=== PATIENT | female | born 1930 | race Caucasian/White ===

== ENCOUNTER 2017-04-15 11:47 | Observation (INO) | payer OTHER ==
[~2017-04-15] VITALS: Ht 144.8 cm; Wt 43.6 kg
[~2017-04-15 11:47] MED LIST: AMLO2.5T PO; ATOR10TA15 PO; CALC500T55 PO; DENO60P SQ; TRAM50TA PO; VITA2000 PO; VITA250T3 PO
[2017-04-15 11:54] VITALS: BP 145/64; PULSE 94; RESP 16; TEMP 97.7; O2SAT 97
[2017-04-15] MEDS ORDERED: SODIUM CHLOR 0.9% 1000 ML INJ 1,000 ML IV SCH (12:33)
--- NOTE | 2017-04-15 12:40 | PD ---
HPI Chief Complaint: GI Complaint Time Seen by Provider: 12:00 Travel History International Travel<30 days: No Contact w/Intl Traveler<30days: No Traveled to known affect area: No History of Present Illness HPI 87-year-old female here with her son for evaluation of nausea and diarrhea for the last 9 days. Patient describes loose/slightly bowel movements for the last 9 days. According to the patient's son she spends most of the day in her bed and has had only a banana to eat daily. Patient has some mild lower abdominal discomfort. She had a fever on the first day of her symptoms, however this has resolved. She has felt nauseous but no vomiting. No urinary symptoms. No recent travel. No recent antibiotic use. PFSH Past Medical History Hx Anticoagulant Therapy: Yes (BABY ASA DAILY) Arthritis: Yes Atrial Fibrillation: Yes Heart Rhythm Problems: Yes Cancer: Yes (MALIGNANT TUMOR OF STOMACH) Cardiac Catheterization: Yes Cardiovascular Problems: Yes (DC'S X 2 , ANGIOPLASTY, HTN, CHOL) High Cholesterol: Yes Congestive Heart Failure: Yes Diabetes: No Diminished Hearing: Yes Endocrine: No Gastrointestinal Disorders: Yes (MALIGNANT TUMOR OF STOMACH (SURGERY)) Genitourinary: No Hypertension: Yes Immune Disorder: No Musculoskeletal: Yes Neurologic: No Psychiatric: No Reproductive: No Respiratory: Yes Myocardial Infarction: Yes Tetanus Vaccination: Unknown Influenza Vaccination: Yes ?: Not Menopausal: Yes Past Surgical History Abdominal Surgery: Yes (MALIGNANT TUMOR OF STOMACH) Cardiac Surgery: Yes (ANGIOPLASTY 1995) Coronary Stent: Yes (ANGIOPLASTY) Eye Surgery: Yes (CATARACTS [id number]) Hysterectomy: Yes Other Surgery: Yes (TUMOR OFF OF STOMACH) Family History Family Myocardial Infarction: Yes Social History Alcohol Use: No Tobacco Use: No Substance Use: No Allergies-Medications (Allergen,Severity, Reaction): Coded Allergies: No Known Allergies (Unverified Adverse Reaction, Unknown, 04/15/17) Reported Meds & Prescriptions Reported Meds & Active Scripts Active Reported Prolia Inj (Denosumab) 60 Mg/Ml Inj 60 Mg SQ Q180D Vitamin D3 (Cholecalciferol) 2,000 Unit Cap 2,000 Units PO DAILY Tramadol (Tramadol HCl) 50 Mg Tab 50 Mg PO Q8H PRN Atorvastatin (Atorvastatin Calcium) 10 Mg Tab 10 Mg PO HS Amlodipine (Amlodipine Besylate) 2.5 Mg Tab 2.5 Mg PO DAILY Review of Systems Except as stated in HPI: all other systems reviewed are Neg Physical Exam Narrative GENERAL: Well-developed, thin, comfortable, no apparent distress. SKIN: Focused skin assessment warm/dry. HEAD: Atraumatic. Normocephalic. EYES: Pupils equal and round. No scleral icterus. No injection or drainage. ENT: No nasal bleeding or discharge. Mucous membranes pink and moist. NECK: Trachea midline. No JVD. CARDIOVASCULAR: Regular rate and rhythm. No murmur appreciated. RESPIRATORY: No accessory muscle use. Clear to auscultation. Breath sounds equal bilaterally. GASTROINTESTINAL: Abdomen soft, nondistended. Mild lower abdominal/suprapubic tenderness without peritoneal signs. Rest of abdomen is soft and nontender. Normal bowel sounds. MUSCULOSKELETAL: No obvious deformities. No clubbing. No cyanosis. No edema. NEUROLOGICAL: Awake and alert. No obvious cranial nerve deficits. Motor grossly within normal limits. Normal speech. PSYCHIATRIC: Appropriate mood and affect; insight and judgment normal. Data Data Last Documented VS Vital Signs Date Time Temp Pulse Resp B/P (MAP) Pulse Ox O2 Delivery O2 Flow Rate FiO2 04/15/17 12:53 98 Room Air 04/15/17 11:54 97.7 94 16 145/64 (91) Orders Orders Complete Blood Count With Diff (04/15/17 12:33) Comprehensive Metabolic Panel (04/15/17 12:33) Lipase (04/15/17 12:33) Prothrombin Time / Inr (Pt) (04/15/17 12:33) Act Partial Throm Time (Ptt) (04/15/17 12:33) Urinalysis - C+S If Indicated (04/15/17 12:33) Ct Abd/Pel W Iv Contrast(Rout) (04/15/17 12:33) Iv Access Insert/Monitor (04/15/17 12:33) Ecg Monitoring (04/15/17 12:33) Oximetry (04/15/17 12:33) Sodium Chlor 0.9% 1000 Ml Inj (Ns 1000 M (04/15/17 12:33) Sodium Chloride 0.9% Flush (Ns Flush) (04/15/17 12:45) C Diff Toxin Pcr (04/15/17 12:33) Stool Ova And Parasite Screen (04/15/17 12:33) Influenzae A/B Antigen (04/15/17 12:33) Creatine Kinase (Cpk) (04/15/17 12:41) Urine Culture (04/15/17 12:10) Iohexol 350 Inj (Omnipaque 350 Inj) (04/15/17 13:48) Ciprofloxacin 400 Mg Premix (Cipro 400 M (04/15/17 14:00) Potassium Chlor 20 Meq Premix (Kcl 20 Me (04/15/17 14:00) Labs Laboratory Tests Test 04/15/17 12:10 04/15/17 12:15 Urine Collection Type CLEAN CATCH Urine Color YELLOW Urine Turbidity SLIGHT Urine pH 6.0 Urine Specific [place] 1.016 Urine Protein 100 mg/dL Urine Glucose (UA) NEG mg/dL Urine Ketones 15 mg/dL Urine Occult Blood SMALL Urine Nitrite NEG Urine Bilirubin NEG Urine Leukocyte Esterase SMALL Urine RBC 0-3 /hpf Urine WBC 15-19 /hpf Urine Squamous Epithelial Cells > 8 /hpf Urine Transitional Epithelial Cells 0-5 /hpf Urine Amorphous Sediment MOD Urine Bacteria MOD /hpf Urine Hyaline Casts 0-2 /lpf Microscopic Urinalysis Comment CULTURE INDICATED Urine Collection Time 1210 White Blood Count 7.0 TH/MM3 Red Blood Count 4.59 MIL/MM3 Hemoglobin 13.2 GM/DL Hematocrit 38.9 % Mean Corpuscular Volume 84.7 FL Mean Corpuscular Hemoglobin 28.7 PG Mean Corpuscular Hemoglobin Concent 33.9 % Red Cell Distribution Width 13.7 % Platelet Count 303 TH/MM3 Mean Platelet Volume 9.2 FL Neutrophils (%) (Auto) 67.3 % Lymphocytes (%) (Auto) 19.1 % Monocytes (%) (Auto) 11.7 % Eosinophils (%) (Auto) 0.6 % Basophils (%) (Auto) 1.3 % Neutrophils # (Auto) 4.8 TH/MM3 Lymphocytes # (Auto) 1.3 TH/MM3 Monocytes # (Auto) 0.8 TH/MM3 Eosinophils # (Auto) 0.0 TH/MM3 Basophils # (Auto) 0.1 TH/MM3 CBC Comment DIFF FINAL Differential Comment Prothrombin Time 11.5 SEC Prothromb Time International Ratio 1.1 RATIO Activated Partial Thromboplast Time 28.2 SEC Blood Urea Nitrogen 11 MG/DL Creatinine 0.73 MG/DL Random Glucose 101 MG/DL Total Protein 7.2 GM/DL Albumin 3.1 GM/DL Calcium Level 9.0 MG/DL Alkaline Phosphatase 85 U/L Aspartate Amino Transf (AST/SGOT) 18 U/L Alanine Aminotransferase (ALT/SGPT) 15 U/L Total Bilirubin 0.6 MG/DL Sodium Level 139 MEQ/L Potassium Level 2.7 MEQ/L Chloride Level 105 MEQ/L Carbon Dioxide Level 25.7 MEQ/L Anion Gap 8 MEQ/L Estimat Glomerular Filtration Rate 75 ML/MIN Total Creatine Kinase 82 U/L Lipase 666 U/L [facility] Medical Decision Making Medical Screen Exam Complete: Yes Emergency Medical Condition: Yes Differential Diagnosis Diarrhea, dehydration, metabolic abnormality, colitis, diverticulitis Narrative Course Initial vital signs show heart rate 94, blood pressure 145/64, pulse ox 98% on room air, oral temp of 97.7F. CBC is unremarkable. CMP is remarkable for potassium 2.7, otherwise unremarkable. Lipase is 666. UA is suggestive of UTI. CT abdomen pelvis: CONCLUSION: Dense atherosclerotic disease. Solid organs are unremarkable. Colon is decompressed. Patient was provided parenteral potassium as well as a dose of IV Cipro for her UA findings. She will be admitted for further treatment and evaluation of diarrhea, severe hypokalemia, generalized weakness, failure to thrive. Case discussed with hospitalist Dr. Young who will admit the patient to her service. Diagnosis Primary Impression: Hypokalemia Additional Impressions: Failure to thrive in adult UTI (urinary tract infection) Qualified Codes: N39.0 - Urinary tract infection, site not specified; R31.9 - Hematuria, unspecified Diarrhea Qualified Codes: R19.7 - Diarrhea, unspecified Admitting Information Admitting Physician Requests: Raheel Su MD Apr 15, 2017 12:40
[2017-04-15] MEDS ORDERED: SODIUM CHLORIDE 0.9% FLUSH 10 ML FLUSH IV FLUSH PRN ×2 (12:45→14:30)
[2017-04-15 12:48] LABS: AUTOMATED NEUTROPHIL # 4.8 TH/MM3 (1.8-7.7); BASOPHIL # 0.1 TH/MM3 (0-0.2); BASOPHIL % 1.3 % (0.0-2.0); EOSINOPHIL % 0.6 % (0.0-4.0); HEMATOCRIT 38.9 % (35.0-46.0); HEMOGLOBIN 13.2 GM/DL (11.6-15.3); LYMPH % 19.1 % (9.0-44.0); LYMPHOCYTE # 1.3 TH/MM3 (1.0-4.8); MEAN CELL VOLUME 84.7 FL (80.0-100.0); MEAN CORPUSCULAR HEMOGLOBIN 28.7 PG (27.0-34.0); MEAN CORPUSCULAR HGB CONC 33.9 % (32.0-36.0); MEAN PLATELET VOLUME 9.2 FL (7.0-11.0); MONO % 11.7 % (0.0-8.0); MONOCYTE # 0.8 TH/MM3 (0-0.9); NEUT % 67.3 % (16.0-70.0); PLATELET COUNT 303 TH/MM3 (150-450); RED BLOOD COUNT 4.59 MIL/MM3 (4.00-5.30); RED CELL DISTRIBUTION WIDTH 13.7 % (11.6-17.2)
[2017-04-15 12:50] LABS: BILIRUBIN, URINE NEG (NEG); BLOOD, URINE SMALL (NEG); GLUCOSE,URINE NEG (NEG); KETONE, URINE 15 mg/dL (NEG); NITRITE,URINE NEG (NEG); URINE LEUKOCYTE ESTERASE SMALL (NEG)
[2017-04-15 12:53] VITALS: O2SAT 98
[2017-04-15 12:58] LABS: URINE COLOR YELLOW (YELLW/STRAW)
[2017-04-15 12:59] LABS: WBC, URINE 15-19 /hpf (0-5)
[2017-04-15 13:00] LABS: AMORPHOUS SEDIMENT, URINE MOD; BACTERIA, URINE MOD /hpf; HYALINE CAST, URINE 0-2 /lpf (RARE); RBC, URINE 0-3 /hpf (0-3); SQUAMOUS EPITHELIAL CELL URINE > 8 /hpf (0-5); TRANSITIONAL EPI CELLS, URINE 0-5 /hpf
[2017-04-15 13:13] LABS: INTERNATIONAL NORMALIZED RATIO 1.1 RATIO; PROTHROMBIN TIME - PATIENT 11.5 SEC (9.8-11.6)
[2017-04-15 13:15] LABS: ALBUMIN 3.1 GM/DL (3.4-5.0); ALKALINE PHOSPHATASE 85 U/L (45-117); ALT (GPT) 15 U/L (10-53); AST (GOT) 18 U/L (15-37); BICARBONATE 25.7 MEQ/L (21.0-32.0); BLOOD UREA NITROGEN 11 MG/DL (7-18); CHLORIDE 105 MEQ/L (98-107); CREATININE 0.73 MG/DL (0.50-1.00); GLOMERULAR FILTRATION RATE 75 ML/MIN (>89); GLUCOSE,RANDOM 101 MG/DL (74-106); SODIUM (NA) 139 MEQ/L (136-145); TOTAL BILIRUBIN ADULT 0.6 MG/DL (0.2-1.0); TOTAL PROTEIN 7.2 GM/DL (6.4-8.2)
[2017-04-15] MEDS ORDERED: IOHEXOL 350 MG/ML 10 ML VIAL (for RAD DIAG) IVCONTRAST ONE (13:48)
[2017-04-15] MEDS ORDERED: CIPROFLOXACIN 400 MG PREMIX 200 ML IV ONE (14:00)
--- NOTE | 2017-04-15 14:01 | RADRPT ---
EXAM DATE/TIME: 04/15/2017 13:44 [place] COMPARISON: No previous studies available for comparison. INDICATIONS : Nausea, vomiting and diarrhea. IV CONTRAST: 70 cc Omnipaque 350 (iohexol) IV ORAL CONTRAST: No oral contrast ingested. RADIATION DOSE: 4.45 CTDIvol (mGy) MEDICAL HISTORY : Cardiovascular disease. Hypercholesterolemia. Hypertension.Stomach cancer. SURGICAL HISTORY : Coronary artery stent. Hysterectomy.Angioplasty.Stomach tumor removed. ENCOUNTER: Initial ACUITY: 2 weeks PAIN SCALE: 4/10 LOCATION: pelvis abdomen TECHNIQUE: Volumetric scanning of the abdomen and pelvis was performed. Using automated exposure control and ad justment of the mA and/or kV according to patient size, radiation dose was kept as low as reasonably achievable to obtain optimal diagnostic quality images. DICOM format image data is available electro nically for review and comparison. FINDINGS: LOWER LUNGS: The visualized lower lungs are clear. LIVER: Homogeneous density without lesion. There is no dilation of the biliary tree. No calcified gallston es. SPLEEN: Normal size without lesion. PANCREAS: Within normal limits. KIDNEYS: Normal in size and shape. There is no mass, stone or hydronephrosis. ADRENAL GLANDS: Within normal limits. VASCULAR: There is no aortic aneurysm. Dense atherosclerotic disease BOWEL/MESENTERY: The stomach, small bowel, and colon demonstrate no acute abnormality. There is no free intraperitone al air or fluid. ABDOMINAL WALL: Within normal limits. RETROPERITONEUM: There is no lymphadenopathy. BLADDER: No wall thickening or mass. REPRODUCTIVE: Within normal limits. INGUINAL: There is no lymphadenopathy or hernia. MUSCULOSKELETAL: Within normal limits for patient age. CONCLUSION: Dense atherosclerotic disease. Solid organs are unremarkable. Colon is decompressed. Jacques Bravo MD on April 15, 2017 at 13:58 Board Certified Radiologist. This report was verified electronically.
[2017-04-15] MEDS: POTASSIUM CHLOR 20 MEQ PREMIX 100 ML IV SCH ×2 (14:13→16:13)
[2017-04-15] MEDS ORDERED: NS + KCL 20 MEQ INJ 1,000 ML IV SCH (14:20)
[2017-04-15] MEDS ORDERED: ONDANSETRON HCL 4 MG/2 ML VIAL IV PUSH PRN (15:00)
--- NOTE | 2017-04-15 15:15 | HHI.HP ---
[facility] Riana Blackburn D.O. Admission Diagnosis hypokalemia, failure to thrive, UTI, diarrhea Diagnoses: (1) Gastroenteritis Diagnosis: Principal (2) Diarrhea Diagnosis: Principal (3) Hypokalemia Diagnosis: Principal (4) UTI (urinary tract infection) Diagnosis: Principal (5) Generalized weakness Diagnosis: Principal (6) Elevated lipase Diagnosis: Principal Chief Complaint: Generalized weakness, diarrhea Travel History International Travel<30 Days: No Contact w/Intl Traveler <30 Da: No Traveled to Known Affected Are: No History of Present Illness 87-year-old female with known history of hypertension, hyperlipidemia , gastric cancer, myocardial infarction who presented to hospital because of nausea, diarrhea, profound weakness. Patient states that her symptoms started approximately 9 days ago. She started with upper abdominal discomfort and then started having explosive diarrhea. Patient states that it was pretty severe for the first couple days.And she has been having diarrhea episodes ever since then up to 5 bowel movements daily. She has not had an appetite and has not really eating much food. She has been drinking Gatorade and keep in fluids and/ or. She does live a home by herself, however her son does come and check on her on a regular basis. Because she has not gotten better, has not gotten out of bed much and has not improved he brought her to the hospital for evaluation. Patient was found to have multiple problems with hypokalemia, elevated lipase level, urinary tract infection, continue diarrhea. Patient will be observed in the hospital for further management. Patient denies any recent antibiotics, sick contacts Review of Systems Gastrointestinal: COMPLAINS OF: Abdominal pain, Diarrhea, Nausea Except as stated in HPI: all other systems reviewed are Neg Past Family Social History Past Medical History Hypertension Hyperlipidemia Coronary artery disease History myocardial infarction History gastric cancer Past Surgical History Cardiac catheterization with angioplasty Cataract surgery Hysterectomy Gastric cancer resection Reported Medications Reported Meds & Active Scripts Active Reported Prolia Inj (Denosumab) 60 Mg/Ml Inj 60 Mg SQ Q180D Vitamin D3 (Cholecalciferol) 2,000 Unit Cap 2,000 Units PO DAILY Tramadol (Tramadol HCl) 50 Mg Tab 50 Mg PO Q8H PRN Atorvastatin (Atorvastatin Calcium) 10 Mg Tab 10 Mg PO HS Amlodipine (Amlodipine Besylate) 2.5 Mg Tab 2.5 Mg PO DAILY Allergies: Coded Allergies: No Known Allergies (Unverified Allergy, Unknown, 04/15/17) Family History Reviewed and significant for heart disease, cancer, diabetes Social History Patient eyes any tobacco, alcohol or illicit drugs Physical Exam Vital Signs Vital Signs Date Time Temp Pulse Resp B/P (MAP) Pulse Ox O2 Delivery O2 Flow Rate FiO2 04/15/17 12:53 98 Room Air 04/15/17 11:54 97.7 94 16 145/64 (91) 97 Physical Exam GENERAL: Well-developed, frail and cachectic, in no acute distress. alert and orientated HEENT: Head is normocephalic without any lesions or masses noted. Facial features are symmetric. Eyes: Pupils equal round reactive to light. Extraocular muscles are intact. Conjunctivae were clear. Oropharyngeal: Pharynx without any erythema edema. Tongue is midline without deviation. Buccal mucosa is moist without any masses or lesions NECK: Supple without any masses. Trachea midline no deviation. No JVD, no bruits are appreciated CARDIAC: Regular rhythm, regular rate. S1/S2 are heard. 2/6 ejection murmur, no gallops or rubs. LUNGS: Clear to auscultation bilaterally. No wheeze, rhonchi or rales. No use of accessory muscles on inspiration or expiration. ABDOMEN: Soft, nontender. Nondistended. Bowel sounds heard in all 4 quadrants. No organomegaly or masses. Negative rebound, negative guarding EXTREMITIES: No edema, pulses are equal bilaterally. No cyanosis or clubbing NEUROLOGY: Mood and affect appear appropriate. Cranial nerves II through XII grossly intact. Muscle strength 5/5 in upper and lower extremities bilaterally. Deep tendon reflexes are 2+ in upper and lower extremities bilaterally. Laboratory Laboratory Tests Test 04/15/17 12:10 04/15/17 12:15 Urine Collection Type CLEAN CATCH Urine Color YELLOW Urine Turbidity SLIGHT Urine pH 6.0 Urine Specific [place] 1.016 Urine Protein 100 Urine Glucose (UA) NEG Urine Ketones 15 Urine Occult Blood SMALL Urine Nitrite NEG Urine Bilirubin NEG Urine Leukocyte Esterase SMALL Urine RBC 0-3 Urine WBC 15-19 Urine Squamous Epithelial Cells > 8 Urine Transitional Epithelial Cells 0-5 Urine Amorphous Sediment MOD Urine Bacteria MOD Urine Hyaline Casts 0-2 Microscopic Urinalysis Comment CULTURE INDICATED Urine Collection Time 1210 White Blood Count 7.0 Red Blood Count 4.59 Hemoglobin 13.2 Hematocrit 38.9 Mean Corpuscular Volume 84.7 Mean Corpuscular Hemoglobin 28.7 Mean Corpuscular Hemoglobin Concent 33.9 Red Cell Distribution Width 13.7 Platelet Count 303 Mean Platelet Volume 9.2 Neutrophils (%) (Auto) 67.3 Lymphocytes (%) (Auto) 19.1 Monocytes (%) (Auto) 11.7 Eosinophils (%) (Auto) 0.6 Basophils (%) (Auto) 1.3 Neutrophils # (Auto) 4.8 Lymphocytes # (Auto) 1.3 Monocytes # (Auto) 0.8 Eosinophils # (Auto) 0.0 Basophils # (Auto) 0.1 CBC Comment DIFF FINAL Differential Comment Prothrombin Time 11.5 Prothromb Time International Ratio 1.1 Activated Partial Thromboplast Time 28.2 Blood Urea Nitrogen 11 Creatinine 0.73 Random Glucose 101 Total Protein 7.2 Albumin 3.1 Calcium Level 9.0 Alkaline Phosphatase 85 Aspartate Amino Transf (AST/SGOT) 18 Alanine Aminotransferase (ALT/SGPT) 15 Total Bilirubin 0.6 Sodium Level 139 Potassium Level 2.7 Chloride Level 105 Carbon Dioxide Level 25.7 Anion Gap 8 Estimat Glomerular Filtration Rate 75 Total Creatine Kinase 82 Lipase 666 Date/Time Source Procedure Growth Status 04/15/17 12:35 Nasal Washing Influenza Types A,B Antigen (JAIMEE) - Final NEGATIVE FOR FLU A AND B ANTIGEN.... Complete 04/15/17 12:10 Urine Clean Catch Urine Culture Pending Received Result Diagram: 04/15/17 1215 04/15/17 1215 Imaging Last Impressions Abdomen/Pelvis CT 04/15/17 1233 Signed Impressions: Service Date/Time: Saturday, April 15, 2017 13:44 - CONCLUSION: Dense atherosclerotic disease. Solid organs are unremarkable. Colon is decompressed. MD Jimmie Mcmahon VTE Risk Assessment Jimmie VTE Risk Assessment: Mod/High Risk (score >= 2) Caprini Risk Assessment Model Point Value = 1 Point Value = 2 Point Value = 3 Point Value = 5 Age 41-60 Minor surgery BMI > 25 kg/m2 Swollen legs Varicose veins or History of unexplained or recurrent spontaneous Oral contraceptives or hormone replacement Sepsis (< 1 month) Serious lung disease, including pneumonia (< 1 month) Abnormal pulmonary function Acute myocardial infarction Congestive heart failure (< 1 month) History of inflammatory bowel disease Medical patient at bed rest Age 61-74 Arthroscopic surgery Major open surgery (> 45 min) Laparoscopic surgery (> 45 min) Malignancy Confined to bed (> 72 hours) Immobilizing plaster cast Central venous access Age >= 75 History of VTE Family history of VTE Factor V Leiden Prothrombin [id number] Lupus anticoagulant Anticardiolipin antibodies Elevated serum homocysteine Heparin-induced thrombocytopenia Other congenital or acquired thrombophilia Stroke (< 1 month) Elective arthroplasty Hip, pelvis, or leg fracture Acute spinal cord injury (< 1 month) Prophylaxis Regimen Total Risk Factor Score Risk Level Prophylaxis Regimen 0-1 Low Early ambulation 2 Moderate Order ONE of the following: *Sequential Compression Device (SCD) *Heparin 5000 units SQ BID 3-4 Higher Order ONE of the following medications: *Heparin 5000 units SQ TID *Enoxaparin/Lovenox 40 mg SQ daily (WT < 150 kg, CrCl > 30 mL/min) *Enoxaparin/Lovenox 30 mg SQ daily (WT < 150 kg, CrCl > 10-29 mL/min) *Enoxaparin/Lovenox 30 mg SQ BID (WT < 150 kg, CrCl > 30 mL/min) AND/OR *Sequential Compression Device (SCD) 5 or more Highest Order ONE of the following medications: *Heparin 5000 units SQ TID (Preferred with Epidurals) *Enoxaparin/Lovenox 40 mg SQ daily (WT < 150 kg, CrCl > 30 mL/min) *Enoxaparin/Lovenox 30 mg SQ daily (WT < 150 kg, CrCl > 10-29 mL/min) *Enoxaparin/Lovenox 30 mg SQ BID (WT < 150 kg, CrCl > 30 mL/min) AND *Sequential Compression Device (SCD) Assessment and Plan Assessment and Plan Gastroenteritis with diarrhea illness Continue IV fluids We'll check stool for C. difficile, WBC, rotavirus, enteric pathogen CT scan does not indicate any colitis Clear liquid diet advance diet tomorrow if patient improves We'll hold antibiotics for infectious diarrhea until further studies have been performed Hypokalemia, secondary to diarrhea illness Replace and continue monitor Elevated lipase, could be reactive CT scan does not indicate any pancreatitis findings trend lipase level Urinary tract infection Patient was given Cipro in the emergency department start Rocephin 1 g daily Generalized weakness Consult physical therapy for evaluation Depending on their mentation patient may need home health care versus rehabilitation Hypertension, hyperlipidemia, coronary artery disease Continue home medications DVT prevention Sequential compression devices Problem Qualifiers (1) Diarrhea: Qualified Codes: R19.7 - Diarrhea, unspecified (2) UTI (urinary tract infection): Qualified Codes: N39.0 - Urinary tract infection, site not specified; R31.9 - Hematuria, unspecified Mk Merritt Apr 15, 2017 15:15
[2017-04-15] MEDS ORDERED: PILL SPLITTER OTHER PRN (15:30)
[2017-04-15 15:36] VITALS: BP 132/43; PULSE 80; RESP 16; O2SAT 98
[2017-04-15 16:00] VITALS: BP 164/71; PULSE 79; RESP 16; TEMP 97.4; O2SAT 98
[2017-04-15] MEDS: cefTRIAXone INJ 1,000 MG in SODIUM CHLORIDE 0.9% INJ 100 ML IV SCH (18:28)
[2017-04-15 20:37] VITALS: BP 129/82; PULSE 80; RESP 12; TEMP 99.2; O2SAT 97
[2017-04-15] MEDS: ATORVASTATIN 10 MG TAB PO SCH (21:27)
[2017-04-15] MEDS: SODIUM CHLORIDE 0.9% FLUSH 10 ML FLUSH IV FLUSH SCH (21:27)
[2017-04-15] MEDS: POTASSIUM CHLORIDE INJ 20 MEQ in SODIUM CHLOR 0.9% 1000 ML INJ 1,000 ML IV SCH (23:22)
[2017-04-16 00:36] VITALS: BP 156/84; PULSE 81; RESP 12; TEMP 98.9; O2SAT 95
[2017-04-16 07:26] LABS: AUTOMATED NEUTROPHIL # 3.3 TH/MM3 (1.8-7.7); BASOPHIL % 0.6 % (0.0-2.0); EOSINOPHIL # 0.1 TH/MM3 (0-0.4); EOSINOPHIL % 2.2 % (0.0-4.0); HEMATOCRIT 34.5 % (35.0-46.0); HEMOGLOBIN 11.4 GM/DL (11.6-15.3); LYMPH % 28.4 % (9.0-44.0); LYMPHOCYTE # 1.6 TH/MM3 (1.0-4.8); MEAN CELL VOLUME 86.4 FL (80.0-100.0); MEAN CORPUSCULAR HEMOGLOBIN 28.6 PG (27.0-34.0); MEAN CORPUSCULAR HGB CONC 33.1 % (32.0-36.0); MEAN PLATELET VOLUME 8.3 FL (7.0-11.0); MONO % 11.6 % (0.0-8.0); MONOCYTE # 0.7 TH/MM3 (0-0.9); NEUT % 57.2 % (16.0-70.0); PLATELET COUNT 285 TH/MM3 (150-450); RED BLOOD COUNT 3.99 MIL/MM3 (4.00-5.30); RED CELL DISTRIBUTION WIDTH 13.4 % (11.6-17.2); WHITE BLOOD COUNT 5.7 TH/MM3 (4.0-11.0)
[2017-04-16 07:40] LABS: BICARBONATE 26.6 MEQ/L (21.0-32.0); CALCIUM 7.6 MG/DL (8.5-10.1); CREATININE 0.54 MG/DL (0.50-1.00)
--- NOTE | 2017-04-16 07:52 | HHI.PR ---
Subjective Remarks Patient seen and examined today in follow up for enteritis, diarrhea. Patient has not had any recurrent diarrhea since being here, Her appetite is improving, will advance diet, patient remains afebrile Objective Vitals Vital Signs Date Time Temp Pulse Resp B/P (MAP) Pulse Ox O2 Delivery O2 Flow Rate FiO2 04/16/17 00:36 98.9 81 12 156/84 (108) 95 04/15/17 20:37 99.2 80 12 129/82 (98) 97 04/15/17 16:00 97.4 79 16 164/71 (102) 98 04/15/17 15:48 04/15/17 15:36 80 16 132/43 (72) 98 Room Air 04/15/17 12:53 98 Room Air 04/15/17 11:54 97.7 94 16 145/64 (91) 97 I/O 04/15/17 04/15/17 04/15/17 04/16/17 04/16/17 04/16/17 07:00 15:00 23:00 07:00 15:00 23:00 Intake Total 400 ml Output Total 300 ml Balance 100 ml Intake IV Total 400 ml Output Urine Total 300 ml # Voids 1 3 Result Diagram: 04/16/17 0700 04/16/17 0700 Objective Remarks GENERAL: Well-developed, frail and cachectic, in no acute distress. alert and orientated HEENT: Head is normocephalic without any lesions or masses noted. Facial features are symmetric. Eyes: Extraocular muscles are intact. Conjunctivae were clear. NECK: Supple without any masses. Trachea midline no deviation. No JVD, CARDIAC: Regular rhythm, regular rate. S1/S2 are heard. 2/6 ejection murmur, no gallops or rubs. LUNGS: Clear to auscultation bilaterally. No wheeze, rhonchi or rales. No use of accessory muscles on inspiration or expiration. ABDOMEN: Soft, nontender. Nondistended. Bowel sounds heard in all 4 quadrants. No organomegaly or masses. Negative rebound, negative guarding EXTREMITIES: No edema, pulses are equal bilaterally. No cyanosis or clubbing NEUROLOGY: Mood and affect appear appropriate. Cranial nerves II through XII grossly intact. Moving all extremities, speech is clear Urinary Catheter: No Vascular Central Line Catheter: No A/P Assessment and Plan Gastroenteritis with diarrhea illness Continue IV fluids Awaiting stool for C. difficile, WBC, rotavirus, enteric pathogen CT scan does not indicate any colitis Advance diet as tolerated We'll hold antibiotics for infectious diarrhea until further studies have been performed Hypokalemia, secondary to diarrhea illness Replace and continue monitor Elevated lipase, could be reactive CT scan does not indicate any pancreatitis findings trend lipase level Urinary tract infection Patient was given Cipro in the emergency department Continue Rocephin 1 g daily Generalized weakness Consulted physical therapy for evaluation Depending on their mentation patient may need home health care versus rehabilitation Hypertension, hyperlipidemia, coronary artery disease Continue home medications DVT prevention Sequential compression devices Discharge Planning Discharge planning 24-48 hrs, dependent upon patient response to treatment Mk Merritt Apr 16, 2017 07:52
[2017-04-16 08:00] VITALS: BP 121/63; PULSE 75; RESP 15; TEMP 96.4; O2SAT 98
[2017-04-16] MEDS: SODIUM CHLORIDE 0.9% FLUSH 10 ML FLUSH IV FLUSH SCH ×2 (08:53→21:00)
[2017-04-16] MEDS: amLODIPine BESYLATE 5 MG TAB PO SCH (08:53)
[2017-04-16] MEDS ORDERED: SERT-129 PO (12:40)
[2017-04-16] MEDS ORDERED: MONT10TA4 PO (12:40)
[2017-04-16] MEDS ORDERED: RANI150T PO (12:40)
[2017-04-16] MEDS: POTASSIUM CHLORIDE INJ 20 MEQ in SODIUM CHLOR 0.9% 1000 ML INJ 1,000 ML IV SCH ×2 (14:25→21:18)
[2017-04-16] MEDS: cefTRIAXone INJ 1,000 MG in SODIUM CHLORIDE 0.9% INJ 100 ML IV SCH (15:56)
[2017-04-16 16:00] VITALS: BP 133/65; PULSE 82; RESP 18; TEMP 97.3; O2SAT 99
[2017-04-16 20:00] VITALS: BP 126/62; PULSE 81; RESP 16; TEMP 96.8; O2SAT 99
[2017-04-16] MEDS: ATORVASTATIN 10 MG TAB PO SCH (21:42)
[2017-04-17] VITALS: BP 136/61; PULSE 78; RESP 16; TEMP 97.6; O2SAT 98
[2017-04-17] MEDS: POTASSIUM CHLORIDE INJ 20 MEQ in SODIUM CHLOR 0.9% 1000 ML INJ 1,000 ML IV SCH ×4 (01:24→15:40)
[2017-04-17] MEDS ORDERED: traMADol HCL 50 MG TAB PO ONE (02:00)
[2017-04-17 06:42] LABS: AUTOMATED NEUTROPHIL # 3.4 TH/MM3 (1.8-7.7); BASOPHIL % 0.4 % (0.0-2.0); EOSINOPHIL # 0.1 TH/MM3 (0-0.4); EOSINOPHIL % 2.2 % (0.0-4.0); HEMOGLOBIN 10.6 GM/DL (11.6-15.3); LYMPH % 34.2 % (9.0-44.0); LYMPHOCYTE # 2.2 TH/MM3 (1.0-4.8); MEAN CELL VOLUME 84.9 FL (80.0-100.0); MEAN CORPUSCULAR HEMOGLOBIN 28.2 PG (27.0-34.0); MEAN CORPUSCULAR HGB CONC 33.3 % (32.0-36.0); MEAN PLATELET VOLUME 8.1 FL (7.0-11.0); MONOCYTE # 0.7 TH/MM3 (0-0.9); NEUT % 52.2 % (16.0-70.0); PLATELET COUNT 313 TH/MM3 (150-450); RED BLOOD COUNT 3.77 MIL/MM3 (4.00-5.30); RED CELL DISTRIBUTION WIDTH 13.4 % (11.6-17.2); WHITE BLOOD COUNT 6.4 TH/MM3 (4.0-11.0)
[2017-04-17 07:03] LABS: CALCIUM 7.3 MG/DL (8.5-10.1); CREATININE 0.47 MG/DL (0.50-1.00); MAGNESIUM 1.5 MG/DL (1.5-2.5)
[2017-04-17 07:31] LABS: CALCIUM-PROTEIN CORRECTED 8.1 MG/DL (8.5-10.1); TOTAL PROTEIN 5.7 GM/DL (6.4-8.2)
[2017-04-17 08:00] VITALS: BP 155/82; PULSE 75; RESP 14; TEMP 96.7; O2SAT 99
[2017-04-17] MEDS: SODIUM CHLORIDE 0.9% FLUSH 10 ML FLUSH IV FLUSH SCH ×2 (09:00→21:59)
[2017-04-17] MEDS ORDERED: MAGNESIUM SULFATE 1 GM PREMIX 100 ML IV ONE (09:00)
[2017-04-17] MEDS ORDERED: POTASSIUM CHLORIDE 10 MEQ CONTROLLED RELEASE TAB PO ONE (09:00)
[2017-04-17] MEDS: amLODIPine BESYLATE 5 MG TAB PO SCH (09:23)
[2017-04-17] MEDS ORDERED: traMADol HCL 50 MG TAB PO PRN (10:00)
--- NOTE | 2017-04-17 10:39 | HHI.PR ---
Subjective Remarks Follow-up enteritis and diarrhea. Patient seen and examined, lying in bed comfortably. Tolerating PO intake, denies any nausea or vomiting. Diarrhea has slowed up. Appetite improving. Vital Signs stable. Afebrile. Objective Vitals Vital Signs Date Time Temp Pulse Resp B/P (MAP) Pulse Ox O2 Delivery O2 Flow Rate FiO2 04/17/17 08:00 96.7 75 14 155/82 (106) 99 04/17/17 03:14 16 04/17/17 00:00 97.6 78 16 136/61 (86) 98 04/16/17 20:00 96.8 81 16 126/62 (83) 99 04/16/17 16:00 97.3 82 18 133/65 (87) 99 I/O 04/16/17 04/16/17 04/16/17 04/17/17 04/17/17 04/17/17 07:00 15:00 23:00 07:00 15:00 23:00 Intake Total 300 ml 300 ml 320 ml 100 ml Output Total 600 ml 400 ml Balance -300 ml -100 ml 320 ml 100 ml Intake Oral 320 ml IV Total 300 ml 300 ml 100 ml Output Urine Total 600 ml 400 ml # Voids 3 1 2 1 1 # Bowel Movements 2 1 0 Result Diagram: 04/17/17 0620 04/17/17 0620 Imaging Last Impressions Abdomen/Pelvis CT 04/15/17 1233 Signed Impressions: Service Date/Time: Saturday, April 15, 2017 13:44 - CONCLUSION: Dense atherosclerotic disease. Solid organs are unremarkable. Colon is decompressed. Jacques Bravo MD Objective Remarks GENERAL: Well-nourished, well-developed patient in NAD. Alert and oriented SKIN: Warm and dry. No rash. HEAD: Normocephalic. Atraumatic. EYES: Pupils equal and round. No scleral icterus. No injection or drainage. ENT: No nasal bleeding or discharge. Mucous membranes pink and moist. NECK: Supple. Trachea midline. CARDIOVASCULAR: Regular rate and rhythm. S1, S2 noted. No murmur appreciated. RESPIRATORY: No accessory muscle use. Clear to auscultation. Breath sounds equal bilaterally. GASTROINTESTINAL: Abdomen soft, non-tender, nondistended. Normoactive bowel sounds x4. MUSCULOSKELETAL: No obvious deformities. Extremities without clubbing, cyanosis , or edema. NEUROLOGICAL: Awake and alert. No obvious cranial nerve deficits. Motor grossly within normal limits. 5/5 muscle strength in bilateral upper and lower extremities. Normal speech. PSYCHIATRIC: Appropriate mood and affect; insight and judgment normal. A/P Problem List: (1) Gastroenteritis ICD Code: K52.9 - Noninfective gastroenteritis and colitis, unspecified (2) Diarrhea ICD Code: R19.7 - Diarrhea, unspecified Status: Acute (3) Hypokalemia ICD Code: E87.6 - Hypokalemia Status: Acute (4) UTI (urinary tract infection) ICD Code: N39.0 - Urinary tract infection, site not specified Status: Acute (5) Generalized weakness ICD Code: R53.1 - Weakness (6) Elevated lipase ICD Code: R74.8 - Abnormal levels of other serum enzymes Assessment and Plan Gastroenteritis with diarrhea illness Continue IV fluids. C. difficile negative. Stool cultures pending. Follow. CT scan does not indicate any colitis Advance diet as tolerated. Depending on toleration of PO intake, will DC home today. Will hold antibiotics for infectious diarrhea until further studies have been performed Hypokalemia, secondary to diarrhea illness Replace and continue monitor. K 3.3 today. S/p replacement. Elevated lipase, could be reactive CT scan does not indicate any pancreatitis findings Trend lipase level. Lipase up today, slightly elevated today 692. Will continue fluids. Urinary tract infection Patient was given Cipro in the emergency department Continue Rocephin 1 g daily. Salmonella and urine culture. Generalized weakness Consulted physical therapy for evaluation. Recommendations for home health PT. Wheeled walker. Hypertension, hyperlipidemia, coronary artery disease Continue home medications DVT prevention Sequential compression devices Problem Qualifiers (1) Diarrhea: Qualified Codes: R19.7 - Diarrhea, unspecified (2) UTI (urinary tract infection): Qualified Codes: N39.0 - Urinary tract infection, site not specified; R31.9 - Hematuria, unspecified Padma Cleveland Apr 17, 2017 10:39
[2017-04-17 12:00] VITALS: BP 161/68; PULSE 78; RESP 12; TEMP 97; O2SAT 99
--- NOTE | 2017-04-17 13:01 | HHI.FF ---
Face to Face Verification Diagnosis: (1) Hypokalemia (2) Diarrhea (3) UTI (urinary tract infection) (4) Gastroenteritis (5) Generalized weakness (6) Elevated lipase Physical Therapy Order: Evaluate and Treat, Improve ambulation, Strength and gait training I have seen patient Lizet Diaz on 04/17/17. My clinical findings support the need for the requested home health care services because: Deconditioned w/ increased weakness Limited ability to care for self I certify that my clinical findings support that this patient is homebound because: Unsteady gait/balance Padma Cleveland Apr 17, 2017 13:01
--- NOTE | 2017-04-17 13:01 | HHI.DCPOC ---
Discharge Care Plan Diagnosis: (1) Generalized weakness (2) Gastroenteritis (3) UTI (urinary tract infection) (4) Diarrhea (5) Elevated lipase (6) Hypokalemia Goals to Promote Your Health * To prevent worsening of your condition and complications * To maintain your health at the optimal level Directions to Meet Your Goals Take your medications as prescribed Follow your dietary instruction Follow activity as directed Keep your appointments as scheduled Take your immunizations and boosters as scheduled If your symptoms worsen call your PCP, if no PCP go to Urgent Care Center or Emergency Room Smoking is Dangerous to Your Health. Avoid second hand smoke Call the 24-hour hour crisis hotline for domestic abuse at Padma Cleveland Apr 17, 2017 13:01
[2017-04-17] MEDS ORDERED: GETGO ROLLING W1 MI1 (13:03)
[2017-04-17] MEDS: cefTRIAXone INJ 1,000 MG in SODIUM CHLORIDE 0.9% INJ 100 ML IV SCH (13:58)
[2017-04-17 16:00] VITALS: BP 122/61; PULSE 73; RESP 14; TEMP 96.3; O2SAT 100
[2017-04-17 20:00] VITALS: BP 112/53; PULSE 74; RESP 20; TEMP 97.3; O2SAT 98
[2017-04-17] MEDS: CHOLESTYRAMINE 4 GM PACKET PO SCH (21:59)
[2017-04-17] MEDS: ATORVASTATIN 10 MG TAB PO SCH (21:59)
[2017-04-18] VITALS: BP 116/55; PULSE 70; RESP 20; TEMP 97.3; O2SAT 98
[2017-04-18] MEDS: POTASSIUM CHLORIDE INJ 20 MEQ in SODIUM CHLOR 0.9% 1000 ML INJ 1,000 ML IV SCH (02:05)
[2017-04-18] MEDS: CHOLESTYRAMINE 4 GM PACKET PO SCH (06:15)
[2017-04-18 06:32] LABS: AUTOMATED NEUTROPHIL # 3.5 TH/MM3 (1.8-7.7); BASOPHIL # 0.1 TH/MM3 (0-0.2); BASOPHIL % 0.8 % (0.0-2.0); EOSINOPHIL # 0.2 TH/MM3 (0-0.4); EOSINOPHIL % 2.9 % (0.0-4.0); HEMATOCRIT 33.1 % (35.0-46.0); HEMOGLOBIN 11.4 GM/DL (11.6-15.3); LYMPH % 38.2 % (9.0-44.0); LYMPHOCYTE # 2.8 TH/MM3 (1.0-4.8); MEAN CELL VOLUME 86.4 FL (80.0-100.0); MEAN CORPUSCULAR HEMOGLOBIN 29.7 PG (27.0-34.0); MEAN CORPUSCULAR HGB CONC 34.4 % (32.0-36.0); MONO % 10.8 % (0.0-8.0); MONOCYTE # 0.8 TH/MM3 (0-0.9); NEUT % 47.3 % (16.0-70.0); PLATELET COUNT 311 TH/MM3 (150-450); RED BLOOD COUNT 3.83 MIL/MM3 (4.00-5.30); RED CELL DISTRIBUTION WIDTH 14.3 % (11.6-17.2); WHITE BLOOD COUNT 7.4 TH/MM3 (4.0-11.0)
[2017-04-18 07:14] LABS: BICARBONATE 23.4 MEQ/L (21.0-32.0); CALCIUM 7.6 MG/DL (8.5-10.1); CREATININE 0.45 MG/DL (0.50-1.00)
[2017-04-18 07:50] VITALS: BP 120/56; PULSE 74; RESP 20; TEMP 97.2; O2SAT 99
[2017-04-18] MEDS: SODIUM CHLORIDE 0.9% FLUSH 10 ML FLUSH IV FLUSH SCH (09:00)
[2017-04-18] MEDS: amLODIPine BESYLATE 5 MG TAB PO SCH (09:13)
--- NOTE | 2017-04-18 09:13 | HHI.DS ---
Discharge Summary Admission Date Apr 15, 2017 at 14:16 Discharge Date: Apr 18, 2017 Admitting Diagnosis Hypokalemia, failure to thrive, UTI, diarrhea (1) Gastroenteritis ICD Code: K52.9 - Noninfective gastroenteritis and colitis, unspecified Diagnosis: Principal (2) Diarrhea ICD Code: R19.7 - Diarrhea, unspecified Diagnosis: Principal Status: Acute (3) Hypokalemia ICD Code: E87.6 - Hypokalemia Diagnosis: Principal Status: Acute (4) UTI (urinary tract infection) ICD Code: N39.0 - Urinary tract infection, site not specified Diagnosis: Principal Status: Acute (5) Generalized weakness ICD Code: R53.1 - Weakness Diagnosis: Principal (6) Elevated lipase ICD Code: R74.8 - Abnormal levels of other serum enzymes Diagnosis: Principal Procedures . Brief History - From Admission 87-year-old female with known history of hypertension, hyperlipidemia , gastric cancer, myocardial infarction who presented to hospital because of nausea, diarrhea, profound weakness. Patient states that her symptoms started approximately 9 days ago. She started with upper abdominal discomfort and then started having explosive diarrhea. Patient states that it was pretty severe for the first couple days.And she has been having diarrhea episodes ever since then up to 5 bowel movements daily. She has not had an appetite and has not really eating much food. She has been drinking Gatorade and keep in fluids and/ or. She does live a home by herself, however her son does come and check on her on a regular basis. Because she has not gotten better, has not gotten out of bed much and has not improved he brought her to the hospital for evaluation. Patient was found to have multiple problems with hypokalemia, elevated lipase level, urinary tract infection, continue diarrhea. Patient will be observed in the hospital for further management. Patient denies any recent antibiotics, sick contacts CBC/BMP: 04/18/17 0610 04/18/17 0610 Significant Findings Laboratory Tests Test 04/15/17 12:10 04/15/17 12:15 04/16/17 07:00 04/16/17 14:10 Urine Protein 100 mg/dL (NEG-TRACE) Urine Ketones 15 mg/dL (NEG) Urine Occult Blood SMALL (NEG) Urine Leukocyte Esterase SMALL (NEG) Urine WBC 15-19 /hpf (0-5) Urine Squamous Epithelial Cells > 8 /hpf (0-5) Urine Bacteria MOD /hpf (NONE) Monocytes (%) (Auto) 11.7 % (0.0-8.0) 11.6 % (0.0-8.0) Albumin 3.1 GM/DL (3.4-5.0) Potassium Level 2.7 MEQ/L (3.5-5.1) 3.4 MEQ/L (3.5-5.1) Estimat Glomerular Filtration Rate 75 ML/MIN (>89) Lipase 666 U/L (73-393) 514 U/L (73-393) Red Blood Count 3.99 MIL/MM3 (4.00-5.30) Hemoglobin 11.4 GM/DL (11.6-15.3) Hematocrit 34.5 % (35.0-46.0) Blood Urea Nitrogen 5 MG/DL (7-18) Calcium Level 7.6 MG/DL (8.5-10.1) Chloride Level 111 MEQ/L (98-107) Test 04/17/17 06:20 04/18/17 06:10 Red Blood Count 3.77 MIL/MM3 (4.00-5.30) 3.83 MIL/MM3 (4.00-5.30) Hemoglobin 10.6 GM/DL (11.6-15.3) 11.4 GM/DL (11.6-15.3) Hematocrit 32.0 % (35.0-46.0) 33.1 % (35.0-46.0) Monocytes (%) (Auto) 11.0 % (0.0-8.0) 10.8 % (0.0-8.0) Blood Urea Nitrogen 4 MG/DL (7-18) 4 MG/DL (7-18) Creatinine 0.47 MG/DL (0.50-1.00) 0.45 MG/DL (0.50-1.00) Total Protein 5.7 GM/DL (6.4-8.2) Calcium Level 7.3 MG/DL (8.5-10.1) 7.6 MG/DL (8.5-10.1) Potassium Level 3.3 MEQ/L (3.5-5.1) Chloride Level 114 MEQ/L (98-107) 113 MEQ/L (98-107) Protein Corrected Calcium 8.1 MG/DL (8.5-10.1) Lipase 692 U/L (73-393) 837 U/L (73-393) Imaging Last Impressions Abdomen/Pelvis CT 04/15/17 1233 Signed Impressions: Service Date/Time: Saturday, April 15, 2017 13:44 - CONCLUSION: Dense atherosclerotic disease. Solid organs are unremarkable. Colon is decompressed. Jacques Bravo MD PE at Discharge GENERAL: Well-nourished, well-developed patient in NAD. Alert and oriented SKIN: Warm and dry. No rash. HEAD: Normocephalic. Atraumatic. EYES: Pupils equal and round. No scleral icterus. No injection or drainage. ENT: No nasal bleeding or discharge. Mucous membranes pink and moist. NECK: Supple. Trachea midline. CARDIOVASCULAR: Regular rate and rhythm. S1, S2 noted. No murmur appreciated. RESPIRATORY: No accessory muscle use. Clear to auscultation. Breath sounds equal bilaterally. GASTROINTESTINAL: Abdomen soft, non-tender, nondistended. Normoactive bowel sounds x4. MUSCULOSKELETAL: No obvious deformities. Extremities without clubbing, cyanosis , or edema. NEUROLOGICAL: Awake and alert. No obvious cranial nerve deficits. Motor grossly within normal limits. 5/5 muscle strength in bilateral upper and lower extremities. Normal speech. PSYCHIATRIC: Appropriate mood and affect; insight and judgment normal. Pt update on day of discharge Patient follow up for diarrhea. Patient states that diarrhea has much improved, has been taking Questran. There were 6 BM documented overnight, patient states that she has not had a BM since yesterday evening around 2200. Has been eating well. Denies any nausea or vomiting. Labs reviewed today and stable, much improved. K stable. VSS. Afebrile. Denies any pain. Ambulating well. PT following. [facility] ordered. Hospital Course Patient was admitted for gastroenteritis with diarrhea illness. Was given IVF. C difficile negative. Stool cultures showing salmonella. CT scan does not indicate any colitis. Patient did not present with any pain. Tolerated regular diet upon discharge. Patient did have hypokalemia, secondary to diarrhea illness , was replaced and stabilized upon DC. Elevated lipase, could be reactive. CT scan does not indicate any pancreatitis findings. Patient was found to have a UTI positive for Salmonella. Was given Ceftriaxone during hospitalization. Will DC on antibiotics. PT saw patient during hospitalization and offered walker and recs for [facility] PT. Patient has been stabilized upon DC and stable to go home. Pt Condition on Discharge: Stable Discharge Disposition: Disch w/ Home Health Serv Discharge Time: <= 30 minutes Discharge Instructions DIET: Follow Instructions for: Heart Healthy Diet Speech Therapy-Diet Recommends: Regular Activities you can perform: Regular-No Restrictions Padma Cleveland Apr 18, 2017 09:13
[2017-04-18] MEDS ORDERED: LEVA750T9 PO (09:19)
[2017-04-18] MEDS ORDERED: CHOL4POW4 PO (09:19)
[2017-04-18] MEDS ORDERED: POTA8CAP PO (09:19)
== END 2017-04-18 11:54 | disposition home health service (06) ==
LOC: PHED 11:47 → PHEDA 14:16 → PH3A 15:42
PROVIDERS: ADMIT Hospitalist; ATTEND Hospitalist
DX: K52.9 Noninfective gastroenteritis and colitis, unspecified (principal); A02.9 Salmonella infection, unspecified; E87.6 Hypokalemia; R74.8 Abnormal levels of other serum enzymes; N39.0 Urinary tract infection, site not specified; R53.1 Weakness; R62.7 Adult failure to thrive; I25.10 Atherosclerotic heart disease of native coronary artery without angina pectoris; I11.0 Hypertensive heart disease with heart failure; I50.9 Heart failure, unspecified; E78.00 Pure hypercholesterolemia, unspecified; I25.2 Old myocardial infarction; H91.90 Unspecified hearing loss, unspecified ear; M19.90 Unspecified osteoarthritis, unspecified site; Z79.899 Other long term (current) drug therapy; Z85.028 Personal history of other malignant neoplasm of stomach
CPT/HCPCS: 74177; 80048; 80053; 81001; 82550; 83690; 83735; 84155; 85025; 85610; 85730; 87077; 87086; 87186; 87205; 87328; 87329; 87425; 87493; 87506; 87804; 96361; 96365; 96366; 96368; 97110; 97116; 97162; 99285; G0378; G8987; G8988; J0696; J0744; J3475; J3480; J7030; Q9967